=== PATIENT | male | born 1990 | race Two or more races ===

== ENCOUNTER 2024-11-21 12:38 | Emergency (ER) | payer OTHER ==
[~2024-11-21] VITALS: Ht 180.3 cm; Wt 104.3 kg
[2024-11-21] MEDS ORDERED: GUAIFENESIN 200 MG/10 ML BLIST.PACK PO ONE ×2 (15:00→15:10)
[2024-11-21 15:52] LABS: BASO % 0.4 % (0.1-1.2); EOS # 0.03 (0.04-0.54); EOS % 0.3 % (0.7-7.0); LYMPH # 1.21 (1.18-3.74); LYMPH % 12.8 % (19.3-53.1); MEAN PLATELET VOLUME 9.10 fl (9.4-12.4); MONO # 0.45 (0.24-0.82); MONO % 4.8 % (4.7-12.5); NEUT # 7.66 (1.56-6.13); NEUT % 81.4 % (34.0-71.1); RED CELL DISTRIBUTION WIDTH 14.6 % (11.6-14.4)
[2024-11-21 16:13] LABS: COVID-19 AG NEGATIVE (NEGATIVE)
== END 2024-11-21 16:35 | disposition home or self-care (01) ==
LOC: ER 12:38
PROVIDERS: General Practice
DX: B34.9 Viral infection, unspecified (principal); Z20.822 Contact with and (suspected) exposure to COVID-19

== ENCOUNTER 2024-11-25 01:13 | Emergency (ER) | payer OTHER ==
[~2024-11-25] VITALS: Ht 180.3 cm; Wt 104.3 kg
[2024-11-25] MEDS ORDERED: BENZONATATE100 MG PO (01:36)
[2024-11-25] MEDS ORDERED: AZITHROMYCIN250 MG PO (01:36)
[2024-11-25] MEDS ORDERED: MUCINEX600 MG PO (01:36)
[2024-11-25 01:37] VITALS: BP 119/79; O2SAT 100
[2024-11-25] MEDS ORDERED: METHYLPREDNISOLONE SOD SUCC 125 MG VIAL IV STA (03:44)
[2024-11-25] MEDS ORDERED: ALBUTEROL SULFATE 3 ML/2.5 MG AMPUL.NEB IH SCH (03:45)
[2024-11-25] MEDS ORDERED: ALBUTEROL SULFATE 3 ML/2.5 MG AMPUL.NEB IH ONE (03:52)
[2024-11-25] MEDS ORDERED: METHYLPREDNISOLONE SOD SUCC 125 MG VIAL ONE (03:59)
[2024-11-25 04:22] LABS: BASO % 0.4 % (0.1-1.2); EOS # 0.08 (0.04-0.54); EOS % 0.8 % (0.7-7.0); LYMPH # 1.13 (1.18-3.74); LYMPH % 10.8 % (19.3-53.1); MEAN PLATELET VOLUME 9.00 fl (9.4-12.4); MONO # 0.46 (0.24-0.82); MONO % 4.4 % (4.7-12.5); NEUT # 8.73 (1.56-6.13); NEUT % 83.4 % (34.0-71.1); RED CELL DISTRIBUTION WIDTH 13.8 % (11.6-14.4)
[2024-11-25 05:34] LABS: COVID-19 AG NEGATIVE (NEGATIVE)
[2024-11-25] MEDS ORDERED: ALBUTEROL2.5 MG/3 M IH (05:41)
== END 2024-11-25 05:53 ==
LOC: ER 01:13
PROVIDERS: General Practice
DX: J06.9 Acute upper respiratory infection, unspecified (principal); R06.02 Shortness of breath; Z20.822 Contact with and (suspected) exposure to COVID-19